=== PATIENT | male | born 1980 | race Caucasian/White ===

== ENCOUNTER 2017-01-17 10:31 | Emergency (ER) | payer MEDICAID, OTHER ==
[~2017-01-17] VITALS: Ht 180.3 cm; Wt 73.9 kg
[~2017-01-17 10:31] MED LIST: HYDR-906 PO; IBUP-1542 PO
[2017-01-17 10:32] VITALS: Ht 180.3 cm; Wt 73.9 kg
--- NOTE | 2017-01-17 11:40 | RADRPT ---
PROCEDURE: US Scrotum. CLINICAL INDICATION: Scrotal pain. TECHNIQUE: Multiple sonographic images of the scrotal region were obtained utilizing a linear arra y transducer with grayscale and color-flow and pulsed Doppler imaging. The images were reviewed on a high-resolution PACS workstation. COMPARISON: No prior studies are available for comparison. FINDINGS: The right testis measures 2.8 x 3.4 x 2.3 cm. The left testis measures 2.8 x 4.0 x 2.5 cm. There is no intratesticular mass. 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 The right epididymis is normal. The left epididymis is mildly enlarged, heterogeneous, and hyperemic . There is normal flow to both testes demonstrated with color Doppler and pulsed Doppler sonography. There is no hydrocele. There is no varicocele. The scrotal wall is unremarkable. IMPRESSION: 1. 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 Follow-up scrotal ultrasound in 12 months advised. 2. No intratesticular mass is visualized on the current study. 3. Left epididymitis. 4. Otherwise normal scrotal ultrasound. RPTAT: QQ .Savage Lei MD, Date Time Electronically viewed and signed by .Savage Lei MD, on 01/17/2017 11:39 .R/
[2017-01-17] MEDS ORDERED: NAPR-260 PO (11:51)
[2017-01-17] MEDS ORDERED: LIDOCAINE 1% (MDV) 20 ML INJ ONE (11:54)
[2017-01-17] MEDS ORDERED: AZITHROMYCIN 250 MG TAB PO ONE (12:00)
[2017-01-17] MEDS ORDERED: CEFTRIAXONE 250 MG INJ IM ONE (12:00)
[2017-01-17 12:11] LABS: ADD UMIC YES; UR ASCORBIC ACID NEGATIVE (NEGATIVE); UR BILIRUBIN (Dip) NEGATIVE (NEGATIVE); UR BLOOD (Dip) 1+ mg/dL (NEGATIVE); UR CLARITY CLEAR (CLEAR); UR COLOR YELLOW (YELLOW); UR GLUCOSE (Dip) 3+ mg/dL (NEGATIVE); UR KETONES (Dip) NEGATIVE (NEGATIVE); UR LEUKOCYTE ESTERASE (Dip) NEGATIVE Leu/ul (NEGATIVE); UR NITRITE (Dip) NEGATIVE (NEGATIVE); UR RBC 0 /HPF (0-5); UR SPECIFIC GRAVITY (Dip) 1.024 (1.003-1.030); UR TOTAL PROTEIN (Dip) 1+ mg/dl (NEGATIVE); UR UROBILINOGEN (Dip) NEGATIVE (NEGATIVE)
--- NOTE | 2017-01-17 12:38 | ERD ---
ER Documentation Chief Complaint Chief Complaint testicular pain since last night HPI 36-year-old male complaining of left-sided testicular pain 2 days. Patient states he has had testicular pain for the last year however has worsened significantly over the last 2 days. Pain is constant. He has not taken medications for symptoms. Denies hematuria. Denies fever. Has not had sexual partners over the last 2 years. Denies penile discharge. Denies abdominal pain. ROS All systems reviewed and are negative except as per history of present illness. Medications Home Meds Active Scripts Naproxen* (Naprosyn*) 500 Mg Tablet, 500 MG PO BID Y for PAIN AND/OR INFLAMMATION, #30 TAB Prov:HAM TERAN PA-C 01/17/17 Ibuprofen* (Motrin*) 600 Mg Tab, 600 MG PO Q6, #30 TAB Prov:EDDIE PACHECO 02/11/16 Hydrocodone/Acetaminophen ([place] 5-325 Tablet) 1 Each Tablet, 1 TAB PO Q6H Y for PAIN, #20 TAB Prov:EDDIE PACHECO 02/11/16 Allergies Allergies: Coded Allergies: No Known Drug Allergies (Verified Allergy, Unknown, 02/10/16) PMhx/Soc History of Surgery: No Anesthesia Reaction: No Hx Cardiac Disorders: Yes (htn) Hx Psychiatric Problems: No Hx Miscellaneous Medical Probl: Yes (dm) Hx Alcohol Use: Yes (Pt drank today) Hx Substance Use: No Hx Tobacco Use: No Smoking Status: Never smoker Physical Exam Vitals Vital Signs Date Time Temp Pulse Resp B/P Pulse Ox O2 Delivery O2 Flow Rate FiO2 01/17/17 10:32 97.9 107 19 145/97 93 Physical Exam GENERAL: The patient is well-appearing, well-nourished, in no acute distress CHEST: Clear to auscultation bilaterally. There are no rales, wheezes or rhonchi. HEART: Regular rate and rhythm. No murmurs, clicks, rubs or gallops. No S3 or S4. ABDOMEN:Soft, nontender and nondistended. Good bowel sounds. No rebound or guarding. No gross peritonitis. No gross organomegaly or masses. No Can sign or McBurney point tenderness. : Circumcised, tender to palpation to the left testicle with mild tenderness along the epididymis. No fluctuance. No induration. No inguinal lymphadenopathy. SKIN: There is no apparent rash or petechiae. The skin is warm and dry. Results 24 hrs Laboratory Tests Test 01/17/17 11:35 Urine Color YELLOW Urine Clarity CLEAR Urine pH 6.0 Urine Specific [place] 1.024 Urine Ketones NEGATIVEmg/dL Urine Nitrite NEGATIVEmg/dL Urine Bilirubin NEGATIVEmg/dL Urine Urobilinogen NEGATIVEmg/dL Urine Leukocyte Esterase NEGATIVELeu/ul Urine Microscopic RBC 0/HPF Urine Microscopic WBC 0/HPF Urine Hemoglobin 1+mg/dL Urine Glucose 3+mg/dL Urine Total Protein 1+mg/dl Current Medications Medications (Trade) Dose Ordered Sig/Eric Route PRN Reason Start Time Stop Time Status Last Admin Dose Admin Azithromycin (Zithromax) 1,000 mg ONCE ONCE PO 01/17/17 12:00 01/17/17 12:01 DC 01/17/17 11:59 Ceftriaxone Sodium (Rocephin) 250 mg ONCE ONCE IM 01/17/17 12:00 01/17/17 12:01 DC 01/17/17 11:58 Lidocaine (Xylocaine 1% (Mdv) 20 ml) 20 ml STK-MED ONCE .ROUTE 01/17/17 11:54 01/17/17 11:55 DC Procedures/MDM ER course: 250 mg IM Rocephin given and 1 g of azithromycin given. Urine does not appear to be infected. Gonorrhea/chlamydia urine culture sent. DIAGNOSTIC IMAGING REPORT Patient: MAXIMUS MOE : 1980 Age: 36 Sex: M MR #: [id number] DOS: 01/17/17 1055 Ordering MD: ARCADIO TERAN PA-C Location: [facility] Room/Bed: PROCEDURE: US Scrotum. CLINICAL INDICATION: Scrotal pain. TECHNIQUE: Multiple sonographic images of the scrotal region were obtained utilizing a linear array transducer with grayscale and color-flow and pulsed Doppler imaging. The images were reviewed on a high-resolution PACS workstation. COMPARISON: No prior studies are available for comparison. FINDINGS: The right testis measures 2.8 x 3.4 x 2.3 cm. The left testis measures 2.8 x 4.0 x 2.5 cm. There is no intratesticular mass. 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 The right epididymis is normal. The left epididymis is mildly enlarged, heterogeneous, and hyperemic. There is normal flow to both testes demonstrated with color Doppler and pulsed Doppler sonography. There is no hydrocele. There is no varicocele. The scrotal wall is unremarkable. IMPRESSION: 1. 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 Follow-up scrotal ultrasound in 12 months advised. 2. No intratesticular mass is visualized on the current study. 3. Left epididymitis. 4. Otherwise normal scrotal ultrasound. MDM: 36-year-old male complaining of testicular pain 2 days. Patient's ultrasound shows epididymitis of the left testicle. Patient is treated with antibiotics. I have low suspicion for testicular torsion. I have low suspicion for testicular abscess. Patient's urine does not appear to be infected. Patient's urine has been sent for STD screening. I have low suspicion for acute abdomen. Patient is discharged with strict ER precautions and recommended to follow-up with primary care within 1-2 days for close evaluation. Patient is told if symptoms change or worsen to return to the ER. All questions answered discharge. Departure Diagnosis: Primary Impression: Acute epididymitis Condition: Stable Patient Instructions: Epididymitis Additional Instructions: FOLLOW UP WITH YOUR PRIMARY CARE PHYSICIAN TOMORROW.Return to this facility if you are not improving as expected. HAM TERAN PA-C Jan 17, 2017 12:38
== END 2017-01-17 12:41 | disposition home or self-care (01) ==
LOC: FTE 10:31
DX: N45.1 Epididymitis (principal); I10 Essential (primary) hypertension; E11.9 Type 2 diabetes mellitus without complications
CPT/HCPCS: 76870; 81001; 87591; 96372; J0696; Z7502; Z7610

== ENCOUNTER 2017-09-06 17:22 | Emergency (ER) | END 2017-09-06 21:17 | disposition home or self-care (01) ==

== ENCOUNTER 2017-09-13 17:46 | Emergency (ER) | END 2017-09-13 22:34 | disposition home or self-care (01) ==